=== PATIENT | female | born 2000 | race Caucasian/White ===

== ENCOUNTER 2019-05-09 23:37 | Observation (INO) | payer MEDICAID, OTHER ==
[~2019-05-09] VITALS: Ht 170.2 cm; Wt 92.1 kg
[2019-05-10] MEDS ORDERED: LACTATED RINGERS 1,000 ML IV SCH (00:22)
[2019-05-10] MEDS ORDERED: ASPI-986 MT (00:48)
[2019-05-10] MEDS ORDERED: PREN1TAB78 MT (00:48)
== END 2019-05-10 02:25 | disposition left against medical advice (07) ==
LOC: 8 EST LDRP 23:37
PROVIDERS: ADMIT Obstetrics & Gynecology; ATTEND Obstetrics & Gynecology
DX: O26.893 Other specified pregnancy related conditions, third trimester (principal); R10.30 Lower abdominal pain, unspecified; R51 Headache; R42 Dizziness and giddiness; O16.3 Unspecified maternal hypertension, third trimester; Z3A.35 35 weeks gestation of pregnancy
CPT/HCPCS: 76805; 76818; 99281; G0378